=== PATIENT | female | born 1995 | race Caucasian/White ===

== ENCOUNTER 2016-09-01 12:17 | Inpatient (IN) | payer OTHER ==
[2016-08-29 23:00] VITALS: BP 135/7; PULSE 88
[~2016-09-01] VITALS: Ht 154.9 cm; Wt 69.1 kg
[2016-09-01] VITALS (29 sets, daily range): BP systolic 105–135; BP diastolic 60–88; PULSE 51–95; TEMP 98.1–98.3
[2016-09-01 14:05] LABS: BASO # 0.1 (0.0-0.2); BASO % 0.4 % (0.0-2.0); EOS # 0.1 (0.0-0.7); EOS % 0.9 % (0-4.0); GRAN % 78.3 % (42.2-75.2); HEMOGLOBIN 12.2 g/dl (12.0-15.0); LYMPH # 1.9 (1.2-3.4); LYMPH % 13.6 % (20.0-51.0); MEAN CELL VOLUME 92 fl (80.0-95.0); MEAN CORPUSCULAR HEMOGLOBIN 32 pg (26.0-32.0); MEAN CORPUSCULAR HGB CONC 35 g/dl (33.0-37.0); MEAN PLATELET VOLUME 10.9 fl (7.4-10.4); MONO # 0.9 (0.1-0.6); MONO % 6.2 % (1.7-9.3); PLATELET COUNT 223 K/mm3 (130-400); RED BLOOD COUNT 3.81 M/mm3 (4.10-5.30); REDCELL DISTRIBUTION WIDTH-CV 11.9 % (11.5-14.5)
[2016-09-01 14:16] LABS: HEMATOCRIT 35.2 % (35.0-45.0)
[2016-09-01] MEDS ORDERED: MOTRIN 800800 MG/TAB PO (14:51)
[2016-09-01] MEDS ORDERED: PERCOCET 325 MG1 TA2 PO (14:52)
[2016-09-02 02:00] VITALS: BP 118/64; PULSE 72; TEMP 98.4
[2016-09-02 07:30] VITALS: BP 116/60; PULSE 60; TEMP 97.4
[2016-09-02 16:15] VITALS: BP 98/79; PULSE 86; TEMP 97.6
[2016-09-02 22:00] VITALS: BP 106/60; PULSE 65; TEMP 97.6
[2016-09-03 08:55] VITALS: BP 116/68; PULSE 67; TEMP 98.7
== END 2016-09-03 14:45 | disposition home or self-care (01) | DRG 775 ==
LOC: LDRO 12:17 → LDR 12:20 → LDRO 13:34 → LDR 13:45 → OB 13:45
PROVIDERS: Obstetrics & Gynecology
PROC: 10E0XZZ Delivery of Products of Conception, External Approach (ICD-10-PCS; principal; 2016-09-01)
PROC: 0KQM0ZZ Repair Perineum Muscle, Open Approach (ICD-10-PCS; 2016-09-01)
PROC: 0UQMXZZ Repair Vulva, External Approach (ICD-10-PCS; 2016-09-01)
DX: O31.11X0 Continuing pregnancy after spontaneous abortion of one fetus or more, first trimester, not applicable or unspecified (principal); O70.1 Second degree perineal laceration during delivery; O71.82 Other specified trauma to perineum and vulva; Z3A.38 38 weeks gestation of pregnancy; Z37.0 Single live birth
CPT/HCPCS: J2590; J7120